=== PATIENT | female | born 1995 | race Two or more races ===

== ENCOUNTER 2020-10-11 08:32 | Inpatient (IN) | payer SELFPAY ==
[~2020-10-11] VITALS: Ht 165.1 cm; Wt 64.9 kg
[2020-10-11] MEDS ORDERED: 0.9 % SODIUM CHLORIDE 10 ML DISP.SYRIN. IV PRN ×2 (09:15→12:00)
[2020-10-11] MEDS ORDERED: OXYTOCIN 30 UNIT/500 ML PREMIX 500 ML IV PRN ×2 (09:15→12:00)
[2020-10-11] MEDS ORDERED: TERBUTALINE 1 MG/ML VIAL. SQ PRN (09:15)
[2020-10-11] MEDS ORDERED: IV RINGERS,LACTATED 1000ML 1,000 ML IV SCH (09:15)
[2020-10-11] MEDS ORDERED: BUTORPHANOL 2 MG/ML VIAL. IVP PRN ×2 (09:15)
[2020-10-11] MEDS ORDERED: LIDOCAINE 1% PF 30 ML VIAL. INJ PRN (09:15)
[2020-10-11 09:23] VITALS: BP 124/84
[2020-10-11] MEDS: IV RINGERS,LACTATED 1000ML 1,000 ML IV SCH ×2 (09:32→10:39)
[2020-10-11 09:59] LABS: BASO % 0 % (0-3); EOS % 0 % (0-3); HEMATOCRIT 39.6 % (36.0-47.0); HEMOGLOBIN 13.3 g/dL (12.0-15.5); LYMPH # 1.6 x10^3/uL (1.0-4.8); LYMPH % 11 % (24-48); MEAN CORPUSCULAR HEMOGLOBIN 30 pg (25-35); MEAN CORPUSCULAR HGB CONC 34 g/dL (31-37); MEAN CORPUSCULAR VOLUME 90 fL (79-100); MONO # 0.9 x10^3/uL (0.0-1.1); MONO % 6 % (0-9); NEUT # 12.5 x10^3/uL (1.8-7.7); NEUT % 83 % (31-73); PLATELET COUNT 186 x10^3/uL (140-400); WHITE BLOOD COUNT 15.1 x10^3/uL (4.0-11.0)
[2020-10-11] MEDS ORDERED: PENICILLIN G K 5,000,000 UNIT in IV DEXTROSE 5% 100ML 100 ML IV ONE (10:00)
[2020-10-11 10:30] LABS: BILIRUBIN,URINE NEGATIVE (NEG); CLARITY,URINE CLEAR; COLOR,URINE YELLOW; NITRITE,URINE NEGATIVE (NEG); PROTEIN,URINE NEGATIVE (NEG-TRACE); UROBILINOGEN,URINE 0.2 mg/dL (0.2 mg/dL)
[2020-10-11 10:39] LABS: BACTERIA,URINE 0 /HPF (0-FEW)
--- NOTE | 2020-10-11 11:45 | PDOC1 ---
V BELT COVERER H&P Date of Admission: Date of Admission: Oct 11, 2020 at 08:32 History of Present Illness: EDC: 10/20/20 LMP: 01/14/20 25y @ 38.5 by L=19 presents with LOF. The pt was found to be grossly ruptured. On presentation she was found to be dilated to 3 cm. The pt was found to have a positive CF screen early in . She declined genetic counseling at . PMH: Gastritis PSH: Denies Meds: PNV, Tums, Pepcid All: NKDA OBHx: AB x 1 SH: no tob, no EtOH FH: noncontributory Medications: Meds: Current Medications Medications (Trade) Dose Ordered Sig/Lu Route PRN Reason Start Time Stop Time Status Last Admin Dose Admin Ringer's Solution 1,000 ml @ 125 mls/hr Q8H IV 10/11/20 09:00 10/11/20 10:39 Penicillin G Potassium 2001459 unit/Dextrose 100 ml @ 100 mls/hr 1X ONCE IV 10/11/20 10:00 10/11/20 10:59 DC 10/11/20 10:05 Allergies: Coded Allergies: No Known Drug Allergies (Unverified , 10/11/20) Physical Exam: Vital Signs: Vital Signs Date Time Temp Pulse Resp B/P (MAP) Pulse Ox O2 Delivery O2 Flow Rate FiO2 10/11/20 09:23 98.9 67 20 124/84 (97) 98.9 PE: GENERAL: No apparent distress. Alert and oriented. HEENT: Head normocephalic, atraumatic. NECK: Supple LUNGS: Clear to auscultation. HEART: RRR, S1, S2 present, pulses intact ABDOMEN: Soft, positive bowel sounds. EXTREMITIES: No cyanosis or edema. NEUROLOGIC: Normal speech, normal tone PSYCHIATRIC: Normal affect, normal mood. SKIN: No ulceration. FHT: 140's +acels/small variable decels/mLTV [place]: 1-3 min SVE: 3/90/-1 Labs: Laboratory Tests Test 10/11/20 09:29 10/11/20 09:30 10/11/20 09:32 White Blood Count 15.1 x10^3/uL (4.0-11.0) H Red Blood Count 4.40 x10^6/uL (3.50-5.40) Hemoglobin 13.3 g/dL (12.0-15.5) Hematocrit 39.6 % (36.0-47.0) Mean Corpuscular Volume 90 fL (79-100) Mean Corpuscular Hemoglobin 30 pg (25-35) Mean Corpuscular Hemoglobin Concent 34 g/dL (31-37) Red Cell Distribution Width 13.0 % (11.5-14.5) Platelet Count 186 x10^3/uL (140-400) Neutrophils (%) (Auto) 83 % (31-73) H Lymphocytes (%) (Auto) 11 % (24-48) L Monocytes (%) (Auto) 6 % (0-9) Eosinophils (%) (Auto) 0 % (0-3) Basophils (%) (Auto) 0 % (0-3) Neutrophils # (Auto) 12.5 x10^3/uL (1.8-7.7) H Lymphocytes # (Auto) 1.6 x10^3/uL (1.0-4.8) Monocytes # (Auto) 0.9 x10^3/uL (0.0-1.1) Eosinophils # (Auto) 0.0 x10^3/uL (0.0-0.7) Basophils # (Auto) 0.0 x10^3/uL (0.0-0.2) Treponema pallidum Antibody Nonreactive (Nonreactive) Urine Collection Type Void Urine Color Yellow Urine Clarity Clear Urine pH 8.0 (<5.0-8.0) Urine Specific [place] 1.010 (1.000-1.030) Urine Protein Negative mg/dL (NEG-TRACE) Urine Glucose (UA) Negative mg/dL (NEG) Urine Ketones (Stick) Negative mg/dL (NEG) Urine Blood Moderate (NEG) Urine Nitrite Negative (NEG) Urine Bilirubin Negative (NEG) Urine Urobilinogen Dipstick 0.2 mg/dL (0.2 mg/dL) Urine Leukocyte Esterase Negative (NEG) Urine RBC 11-20 /HPF (0-2) Urine WBC 1-4 /HPF (0-4) Urine Squamous Epithelial Cells Occ /LPF Urine Bacteria 0 /HPF (0-FEW) SARS-CoV-2 Antigen (Rapid) Negative (NEGATIVE) Laboratory Tests 10/11/20 09:29 Laboratory Tests 10/11/20 09:29 Assessment & Plan: A/P 25y @ 38.5 by L=19 1.) SROM appears to be in active labor, expectant management 2.) CF screen pos 3.) TDAP given 07/23/20 4.) Flu vaccine given 07/23/20 5.) Fetus cat I FHT 6.) GBSuria on PCN 7.) Girl - DANNY Gonzalez MD Oct 11, 2020 11:45
--- NOTE | 2020-10-11 11:50 | PDOC ---
VAGINAL DELIVERY DATE DATE: 10/11/20 TIME: 11:48 TIME Patient delivered a viable female over intact perineum at 1126. Wt 6 lb 8 oz. Apgars 8/9. Placenta delivered spontaneously, intact with 3VC. 2nd degree laceration repaired with 3'0 vicryl in a nml fashion. Good hemostasis noted. 20 U of Pit given with IVF. EBL 200 cc. WEIGHT Weight [ ] DANNY ZEPEDA MD Oct 11, 2020 11:50
[2020-10-11] MEDS ORDERED: TDaP (Adacel) per PROTOCOL. MC PRN (12:00)
[2020-10-11] MEDS ORDERED: oxyCODONE/APAP 5/325 1 TAB TABLET PO PRN (12:00)
[2020-10-11] MEDS ORDERED: ACETAMINOPHEN 325 MG TABLET. PO PRN (12:00)
[2020-10-11] MEDS ORDERED: MMR per PROTOCOL. MC PRN (12:00)
[2020-10-11] MEDS ORDERED: MAG HYDROX/ALUMINUM HYD/SIMETH 30 ML ORAL.SUSP PO PRN (12:00)
[2020-10-11] MEDS ORDERED: SIMETHICONE 80 MG TAB.CHEW PO PRN (12:00)
[2020-10-11] MEDS ORDERED: BENZOCAINE 20% TOPICAL AEROSOL SPRAY 57GM CAN. TP PRN (12:00)
[2020-10-11] MEDS ORDERED: HYDROCORTISONE 1% TOPICAL OINTMENT 30GM TUBE. TP PRN (12:00)
[2020-10-11] MEDS ORDERED: PHENYLEPH/MINERAL OIL/PETROLAT RECTAL OINTMENT TUBE. RC PRN (12:00)
[2020-10-11] MEDS ORDERED: ZOLPIDEM 5 MG TABLET. PO PRN (12:00)
[2020-10-11] MEDS ORDERED: diphenhydrAMINE HCL 25 MG CAPSULE PO PRN (12:00)
[2020-10-11] MEDS ORDERED: MAGNESIUM HYDROXIDE 2,400 MG/30 ML ORAL.SUSP. PO PRN (12:00)
[2020-10-11] MEDS: IBUPROFEN 400 MG TABLET. PO PRN (13:30)
[2020-10-11] MEDS ORDERED: PENICILLIN G K 2,500,000 UNIT in IV DEXTROSE 5% 50 ML IV SCH (14:00)
[2020-10-11 14:45] VITALS: BP 108/53
[2020-10-11 15:30] VITALS: BP 122/71
[2020-10-11] MEDS ORDERED: PREN1TAB58 PO (16:50)
[2020-10-11 17:00] VITALS: BP 106/50
[2020-10-11] MEDS: DOCUSATE SODIUM 100 MG CAPSULE. PO PRN (18:31)
[2020-10-11] MEDS ORDERED: IV NORMAL SALINE 1000ML BAG 1,000 ML IV SCH (19:30)
[2020-10-11 20:30] VITALS: BP 100/60
[2020-10-12] MEDS: IV RINGERS,LACTATED 1000ML 1,000 ML IV SCH ×3 (01:00→17:00)
[2020-10-12 02:08] VITALS: BP 97/59
[2020-10-12] MEDS: IBUPROFEN 400 MG TABLET. PO PRN ×2 (06:06→16:23)
[2020-10-12 06:15] VITALS: BP 89/65
[2020-10-12] MEDS: FERROUS SULFATE 325 MG TABLET. PO SCH ×2 (08:00→16:20)
[2020-10-12] MEDS: DOCUSATE SODIUM 100 MG CAPSULE. PO PRN ×2 (08:37→16:23)
[2020-10-12] MEDS: PRENATAL MULTIVITAMIN TABLET. PO SCH (08:37)
[2020-10-12 08:57] LABS: HEMATOCRIT 33.3 % (36.0-47.0); HEMOGLOBIN 11.3 g/dL (12.0-15.5); RED BLOOD COUNT 3.69 x10^6/uL (3.50-5.40); RED CELL DISTRIBUTION WIDTH 13.3 % (11.5-14.5); WHITE BLOOD COUNT 12.4 x10^3/uL (4.0-11.0)
[2020-10-12 09:58] VITALS: BP 104/64
--- NOTE | 2020-10-12 11:57 | PDOC ---
LIBRARY SALES CONSULTANT PROGRESS NOTE Date of Service: DATE: 10/12/20 TIME: 11:57 Subjective: Pt with good pain control. Rich PO. Voiding. Minimal lochia. Objective: Vital Signs: Vital Signs Date Time Temp Pulse Resp B/P (MAP) Pulse Ox O2 Delivery O2 Flow Rate FiO2 10/11/20 09:23 98.9 67 20 124/84 (97) 98.9 10/11/20 14:45 99 Room Air Vital Signs Date Time Temp Pulse Resp B/P (MAP) Pulse Ox O2 Delivery O2 Flow Rate FiO2 10/12/20 09:58 97.9 76 16 104/64 (77) 98 Room Air 97.9 Labs: Laboratory Tests Test 10/12/20 07:24 White Blood Count 12.4 x10^3/uL (4.0-11.0) H Red Blood Count 3.69 x10^6/uL (3.50-5.40) Hemoglobin 11.3 g/dL (12.0-15.5) L Hematocrit 33.3 % (36.0-47.0) L Mean Corpuscular Volume 90 fL (79-100) Mean Corpuscular Hemoglobin 31 pg (25-35) Mean Corpuscular Hemoglobin Concent 34 g/dL (31-37) Red Cell Distribution Width 13.3 % (11.5-14.5) Platelet Count 176 x10^3/uL (140-400) Laboratory Tests 10/12/20 07:24 Laboratory Tests 10/12/20 07:24 Physical Exam: GENERAL: No apparent distress. Alert and oriented. HEENT: Head normocephalic, atraumatic. NECK: Supple LUNGS: Clear to auscultation. HEART: RRR, S1, S2 present, pulses intact ABDOMEN: Soft, positive bowel sounds. EXTREMITIES: No cyanosis or edema. NEUROLOGIC: Normal speech, normal tone PSYCHIATRIC: Normal affect, normal mood. SKIN: No ulceration. FFNT below umb No C/C/E Assessment & Plan: A/P 25y PPD #1 s/p 1.) PP doing well 2.) CF screen pos 3.) TDAP given 07/23/20 4.) Flu vaccine given 07/23/20 5.) Hgb 13.3 -> 11.3 6.) Girl Medina 7.) Cont PP DANNY Garcia MD Oct 12, 2020 11:57
[2020-10-12 16:19] VITALS: BP 112/71
[2020-10-12 22:00] VITALS: BP 107/62
[2020-10-13] MEDS: IBUPROFEN 400 MG TABLET. PO PRN ×2 (05:57→15:19)
[2020-10-13 06:14] VITALS: BP 110/73
--- NOTE | 2020-10-13 08:29 | PDOC ---
SOLUTION ARCHITECT PROGRESS NOTE Date of Service: DATE: 10/13/20 TIME: 08:28 Subjective: Pt with good pain control. Rich PO. Voiding. Minimal lochia Objective: Vital Signs: Vital Signs Date Time Temp Pulse Resp B/P (MAP) Pulse Ox O2 Delivery O2 Flow Rate FiO2 10/12/20 08:00 Room Air 10/12/20 09:58 97.9 76 16 104/64 (77) 98 97.9 Vital Signs Date Time Temp Pulse Resp B/P (MAP) Pulse Ox O2 Delivery O2 Flow Rate FiO2 10/13/20 06:14 97.5 71 16 110/73 (85) 99 Room Air 97.5 Physical Exam: GENERAL: No apparent distress. Alert and oriented. HEENT: Head normocephalic, atraumatic. NECK: Supple LUNGS: Clear to auscultation. HEART: RRR, S1, S2 present, pulses intact ABDOMEN: Soft, positive bowel sounds. EXTREMITIES: No cyanosis or edema. NEUROLOGIC: Normal speech, normal tone PSYCHIATRIC: Normal affect, normal mood. SKIN: No ulceration. FFNT below umb No C/C/E Assessment & Plan: A/P 25y PPD #2 s/p 1.) PP doing well 2.) Maternal CF screen pos 3.) TDAP given 07/23/20 4.) Flu vaccine given 07/23/20 5.) Hgb 13.3 -> 11.3 6.) Girl Medina 7.) D/c home DANNY ZEPEDA MD Oct 13, 2020 08:29
[2020-10-13] MEDS ORDERED: DOCU-109 PO (08:35)
[2020-10-13] MEDS ORDERED: IBUP-1060 PO (08:35)
[2020-10-13] MEDS: PRENATAL MULTIVITAMIN TABLET. PO SCH (08:51)
[2020-10-13] MEDS: DOCUSATE SODIUM 100 MG CAPSULE. PO PRN (08:51)
--- NOTE | 2020-10-13 13:32 | DS ---
DATE OF DISCHARGE: 10/13/2020 ADMISSION DIAGNOSES: 1. Intrauterine at 38 weeks and 5 days by LMP equal to a 19-week ultrasound. 2. Spontaneous rupture of membranes. 3. Positive cystic fibrosis screen, maternal. 4. GBS bacteriuria. DISCHARGE DIAGNOSES: 1. Intrauterine at 38 weeks and 5 days by LMP equal to a 19-week ultrasound. 2. Spontaneous rupture of membranes. 3. Positive cystic fibrosis screen, maternal. 4. GBS bacteriuria. PROCEDURE: Spontaneous vaginal delivery. BRIEF HOSPITAL COURSE: The patient is a 25-year-old 2, para 0-0-1-0, who presented to Labor and Delivery at 38 weeks and 5 days by LMP equal to a 19-week ultrasound with leakage of fluid. The patient was found to be grossly ruptured. At the time of presentation, the patient was dilated to 3 cm. The patient progressed well and ultimately delivered via vaginal delivery, see delivery note for full detail. By day #2, the patient was meeting all discharge criteria and was subsequently discharged home. Of note, her hemoglobin on admission was 13.3 and at time of discharge was 11.3. DISCHARGE INSTRUCTIONS: The patient was told not to take lift anything greater than 20 pounds, have pelvic rest for 6 weeks. CALL IF: The patient was to call if she had fevers, chills, nausea, vomiting, abdominal pain or any additional questions or concerns. FOLLOWUP APPOINTMENT: The patient is to follow up at [facility] on 11/20/2019 at 1:20 p.m. DISCHARGE MEDICATIONS: The patient was given a prescription for Motrin 800 mg 30 pills and Colace 100 mg 30 pills. DANNY ZEPEDA MD DR: PING/lester JOB#: [id number] / [id number]
[2020-10-13 14:45] VITALS: BP 112/61
--- NOTE | 2020-10-13 16:00 | NUR ---
Discharge and follow up instructions reviewed and given to pt along with 2 Rx. Instructions reviewed in Belarusian and Turkish. Pt denied any complaints at this time. Pt ambulated out of the hospital with staff by her side.
--- NOTE | 2020-10-15 15:19 | PATHOLOGY ---
[facility] Accession Number: [id number] . 01 Material submitted: . placenta - PLACENTA AND CORD . 01 Clinical history: . VAGINAL DELIVERY MECONIUM FLUID,38.5 WKS GESTATION,EDC 10.20.2020 . . 02 Diagnosis: 446 gram early term placenta of an estimated 38.5 weeks gestation with attached membranes and umbilical cord: - Acute chorionitis and focal mild acute chorioamnionitis. - Acute funisitis. - Few subamniotic pigmented macrophages consistent with light meconium staining. - Velamentous insertion of umbilical cord. - Recent intervillous hemorrhage. . (JPM:mm; 10/15/2020) [facility] 10/15/2020 1415 Local . 02 Electronically signed: . Charbel Mcqueen MD, Pathologist NPI- [id number] . 01 Gross description: . The specimen is received in formalin, labeled "Kelsy Angulo, placenta". Received is a gill placenta with attached membranes and umbilical cord with a trimmed placental weight of 446 g and measuring 15.2 x 14.6 x 3.2 cm in greatest dimensions. The membranes are sequeira-baker and translucent in appearance, and the site of membrane rupture is 6.1 cm from the placental margin. The surface is intact and blue-green in appearance with a normal arborizing vascular pattern. The amnion is completely detached from the surface and is wrapped around the base of the umbilical cord. The trivascular umbilical cord measures 21.0 cm in length by 1.3 cm in diameter. The umbilical cord displays a velamentous insertion, extending out 3.6 cm from the placental margin. The vessels are intact. The umbilical cord is white-baker in appearance with minimal helical twisting. The maternal surface is intact and complete; a moderate amount of adherent blood coagulum is seen on the surface. Sectioning reveals red-brown cut surfaces with no grossly distinct nodules or lesions. The specimen is submitted representatively as follows: . A1 proximal umbilical cord and vessels extending out from surface A2 umbilical cord and membrane roll A3-A4 applications sales representative sections of maternal surface. (CAA; 10/14/2020) QA/[facility] 10/14/2020 1723 Local . 02 Pathologist provided ICD-10: O41.1230, O77.0, Z3A.38 . 02 CPT . 273791 Specimen Comment: A courtesy copy of this report has been sent to [phone] Specimen Comment: Report sent to Performed at: 01 [facility] [address], [place] [id number] MD Leonard Escobar MD Phone: [phone] Performed at: 02 [facility] [address], [place] [id number] MD Charbel Mcqueen MD Phone: [phone]
== END 2020-10-13 16:00 | disposition home or self-care (01) | DRG 806 ==
LOC: 3 SO LND 08:32 → OBSVTOIN 08:32 → 3 NORTH 14:15
PROVIDERS: ADMIT Obstetrics & Gynecology; ATTEND Obstetrics & Gynecology
PROC: 0KQM0ZZ Repair Perineum Muscle, Open Approach (ICD-10-PCS; principal; 2020-10-11)
PROC: 10E0XZZ Delivery of Products of Conception, External Approach (ICD-10-PCS; 2020-10-11)
DX: O42.92 Full-term premature rupture of membranes, unspecified as to length of time between rupture and onset of labor (principal); E84.9 Cystic fibrosis, unspecified; Z37.0 Single live birth; O98.82 Other maternal infectious and parasitic diseases complicating childbirth; O99.284 Endocrine, nutritional and metabolic diseases complicating childbirth; O70.1 Second degree perineal laceration during delivery; Z3A.38 38 weeks gestation of pregnancy; Z20.828 Contact with and (suspected) exposure to other viral communicable diseases; B95.1 Streptococcus, group B, as the cause of diseases classified elsewhere
CPT/HCPCS: 36415; 81001; 85025; 85027; 86592; 86850; 86900; 86901; 87426; 88307; J2540; J2590; J3490; J7060; J7120; U0003; G0378